=== PATIENT | male | born 1965 ===

== ENCOUNTER → 2019-07-04 | Outpatient (CLI) | payer OTHER ==
[2019-07-04 20:14] LABS: Automated BF RBC Count 0.011 M/mm3 (0-0); Automated BF WBC Count 0.229 K/mm3 (0-999); Body Fluid WBC Count 229 /mm3 (0-999); RBC Count, Body Fluid 11000 /mm3 (0-0)
[2019-07-04 21:02] LABS: Total Cell Count, Body Fluid 100
[2019-07-04 21:03] LABS: Appearance, Body Fluid Hazy (Clear); Color, Body Fluid Amber (None-Yellow)
== END ==
LOC: LAB SHORT 19:25 → LAB 19:25
PROVIDERS: Nurse Practitioner
DX: M70.21 Olecranon bursitis, right elbow (principal)
CPT/HCPCS: 89051